=== PATIENT | female | born 1975 | race Caucasian/White ===

== ENCOUNTER 2018-12-21 06:53 | Outpatient (CLI) | payer BC, OTHER ==
[2018-12-21 09:21] LABS: THYROID STIMULATING HORMONE 3.487 mIU/mL (0.358-3.740)
[2018-12-21 09:37] LABS: BILIRUBIN,TOTAL 0.3 mg/dL (0.2-1.0); CREATININE 0.8 mg/dL (0.6-1.3); POTASSIUM 3.8 mmol/L (3.5-5.1); URIC ACID 4.9 mg/dL (2.6-6.0)
[2018-12-21 09:40] LABS: BASOPHILS % (AUTO) 0.4 % (0.0-2.0); EOSINOPHILS # (AUTO) 0.3 K/uL (0.0-0.7); EOSINOPHILS % (AUTO) 3.2 % (0.0-7.0); HEMATOCRIT 39.6 % (31.2-41.9); HEMOGLOBIN 13.2 g/dL (10.9-14.3); LYMPHOCYTES # (AUTO) 1.4 K/uL (20.0-40.0); LYMPHOCYTES % (AUTO) 14.7 % (20.5-51.5); MEAN CORPUSCULAR HEMOGLOBIN 29.8 uug (24.7-32.8); MEAN CORPUSCULAR HGB CONC 33 g/dL (32.3-35.6); MEAN CORPUSCULAR VOLUME 89.6 fL (75.5-95.3); MONOCYTES # (AUTO) 0.6 K/uL (2.0-10.0); MONOCYTES % (AUTO) 6.7 % (0.0-11.0); NEUTROPHILS # (AUTO) 7.1 K/uL (1.8-8.9); PLATELET COUNT (AUTO) 223 K/uL (179-408); RED BLOOD CELL COUNT(AUTO) 4.42 MIL/uL (3.63-4.92); WHITE BLOOD COUNT (AUTO) 9.4 K/uL (3.8-11.8)
[2018-12-21 09:45] LABS: *BILIRUBIN,URIN NEGATIVE (NEGATIVE); *KETONES,URINE NEGATIVE (NEGATIVE); *UROBILINOGEN,URINE 0.2 E.U./dl (NORMAL); LEUKOCYTE ESTERASE ,URINE TRACE (NEGATIVE); NITRITE, URINE NEGATIVE (NEGATIVE); PH,URINE 5.5 (5.0-8.0); UGLUCOSE NEGATIVE (NEGATIVE)
[2018-12-21 09:58] LABS: *BLOOD, URINE TRACE (NEGATIVE); *CLARITY,URINE HAZY (CLEAR); *COLOR,URINE LIGHT YELLOW (YELLOW)
[2018-12-21 10:03] LABS: BACTERIA,URINE MODERATE /HPF (NONE SEEN); SQUAMOUS EPITHELIAL CELL,UR MANY /HPF (NONE SEEN)
[2018-12-21 10:25] LABS: *RHEUMATOID FACTOR SCREEN NEGATIVE (NEGATIVE)
== END 2018-12-21 23:59 | disposition home or self-care (01) ==
LOC: LAB 06:53
PROVIDERS: ATTEND Legal Medicine
DX: Z00.00 Encounter for general adult medical examination without abnormal findings (principal); E55.9 Vitamin D deficiency, unspecified; D64.9 Anemia, unspecified; R53.1 Weakness
CPT/HCPCS: 36415; 71046; 82085; 84443; 84550; 85025; 85651; 86038; 86140; 86430; 87086

== ENCOUNTER 2019-11-16 07:47 | Emergency (ER) | payer BC, OTHER ==
[~2019-11-16] VITALS: Ht 172.7 cm; Wt 77.1 kg
--- NOTE | 2019-11-16 08:29 | NUR ---
PT IS IN ROOM #3. DR CHACON EVALUATED THE PT.
[2019-11-16 08:35] VITALS: BP 134/71
--- NOTE | 2019-11-16 08:35 | NUR ---
PT WAS D/C'd TO HOME. D/C INSTRUCTIONS GIVEN TO THE PT BY DR CHACON.
== END 2019-11-16 08:37 | disposition home or self-care (01) ==
LOC: ER 07:47
DX: J02.9 Acute pharyngitis, unspecified (principal); R05 Cough; Z20.828 Contact with and (suspected) exposure to other viral communicable diseases
CPT/HCPCS: 86403; 87070; 99283; U0003; 36415; A4663

== ENCOUNTER 2020-05-05 15:06 | Outpatient (CLI) | payer BC, OTHER | END 2020-05-05 23:59 | disposition home or self-care (01) | LOC: XRAY 15:06 | PROVIDERS: ATTEND Legal Medicine | DX: R05 Cough (principal); R06.02 Shortness of breath; R91.8 Other nonspecific abnormal finding of lung field | CPT/HCPCS: 71046 ==

== ENCOUNTER 2020-06-03 06:54 | Outpatient (CLI) | payer BC, OTHER | END 2020-06-03 23:59 | disposition home or self-care (01) | LOC: XRAY 06:54 | PROVIDERS: ATTEND Legal Medicine | DX: R06.02 Shortness of breath (principal) | CPT/HCPCS: 71046 ==